=== PATIENT | male | born 1970 | race Caucasian/White ===

== ENCOUNTER 2018-10-14 08:51 | Emergency (ER) | payer BC, OTHER ==
[~2018-10-14] VITALS: Ht 180.3 cm; Wt 94.3 kg
[~2018-10-14 08:51] MED LIST: BEN25 PO; MED4DP PO; PRED20TA PO; TRIA15OI9 TOP
[2018-10-14 09:07] VITALS: Ht 180.3 cm; Wt 94.3 kg
[2018-10-14] MEDS ORDERED: DEXAMETHASONE 10 MG/ML 1 ML INJ IM ONE (09:30)
--- NOTE | 2018-10-14 09:39 | ERD ---
ER Documentation Chief Complaint Chief Complaint MULTIPLE INSECT BITE TO BOTH UPPER EXT FOR FEW DAYS HPI 47-year-old male presenting with insect bite to the bilateral upper extremities. Patient states that he has been bitten multiple times and is very itchy causing him not to feel the sleep. He took Tylenol with no alleviation of symptoms but no other medications. He denies any fevers. He states that areas are swollen. Denies medical problems. NKDA. Surgical history denies. Social history smokes marijuana and cigarettes occasionally. ROS All systems reviewed and are negative except as per history of present illness. Medications Home Meds Active Scripts Triamcinolone Acetonide (Triamcinolone Acetonide) 0.5% - 15 Gm Oint..gm., 1 APPLIC TOP BID, #1 TUB Prov:JESSICA WRIGHT PA-C 10/14/18 Diphenhydramine Hcl* (Benadryl*) 25 Mg Cap, 25 MG PO Q6, #30 CAP Prov:JESSICA WRIGHT PA-C 10/14/18 Methylprednisolone* (Medrol* DOSE PACK) 4 Mg/Dose-Pack Tab.ds.pk, 4 MG PO . DIRECTED, #1 PACKET Prov:JESSICA WRIGHT PA-C 10/14/18 Prednisone* (Prednisone*) 20 Mg Tab, 40 MG PO DAILY for 4 Days, TAB Prov:JESSICA WRIGHT PA-C 10/14/18 Allergies Allergies: Coded Allergies: No Known Allergy (Unverified , 10/14/18) PMhx/Soc History of Surgery: No Anesthesia Reaction: No Hx Neurological Disorder: No Hx Respiratory Disorders: No Hx Cardiac Disorders: No Hx Psychiatric Problems: No Hx Miscellaneous Medical Probl: No Hx Alcohol Use: Yes Hx Substance Use: No Hx Tobacco Use: Yes Smoking Status: Current every day smoker FmHx Family History: No diabetes, No coronary disease, No other Physical Exam Vitals Vital Signs Date Temp Pulse Resp B/P (MAP) Pulse Ox O2 O2 Flow FiO2 Time Delivery Rate 10/14/18 98.1 106 18 174/108 97 09:07 (130) Physical Exam GENERAL: The patient is well-appearing, well-nourished, in no acute distress CHEST: Clear to auscultation bilaterally. There are no rales, wheezes or rhonchi. HEART: Regular rate and rhythm. No murmurs, clicks, rubs or gallops. ABDOMEN:Soft, nontender and nondistended. Good bowel sounds. No rebound or guarding. No gross peritonitis. No gross organomegaly or masses. EXTREMITIES: Equal pulses bilaterally. There is no peripheral clubbing, cyanosis or edema. No focal swelling or erythema. Full range of motion. NEUROLOGIC: Alert and oriented. Cranial nerves II through XII intact. Motor strength in all 4 extremities with 5 out of 5 strength. Sensation grossly intact. Normal speech and gait. SKIN: Multiple erythematous wheals noted on the forearms. No pustules and no lymphatic streaking. Results 24 hrs Current Medications Medications Dose Sig/Blanca Start Time Status Last (Trade) Ordered Route PRN Stop Time Admin Dose Reason Admin 10 mg ONCE ONCE 10/14/18 DC 10/14/18 Dexamethasone IM 09:30 10/14/18 09:27 (Decadron) 09:31 Procedures/MDM ER course: Decadron given in ED MDM: 47-year-old male presenting with insect bites. I have low suspicion for infection. Patient's bites appear to be allergic in nature and I believe the erythema is due to irritation from the affecting agent. I do not feel antibiotics are indicated. Patient is discharged with supportive medications. Patient is recommended to use insect repellent when outside as I believe this is where patient is getting bitten. Patient is discharged with strict ER precautions. All questions answered at discharge Departure Diagnosis: Primary Impression: Insect bite Condition: Stable Patient Instructions: Insect Bite Referrals: [facility] YOU HAVE RECEIVED A MEDICAL SCREENING EXAM AND THE RESULTS INDICATE THAT YOU DO NOT HAVE A CONDITION THAT REQUIRES URGENT TREATMENT IN THE EMERGENCY DEPARTMENT. FURTHER EVALUATION AND TREATMENT OF YOUR CONDITION CAN WAIT UNTIL YOU ARE SEEN IN YOUR DOCTORS OFFICE WITHIN THE NEXT 1-2 DAYS. IT IS YOUR RESPONSIBILITY TO MAKE AN APPOINTMENT FOR FOLOW-UP CARE. IF YOU HAVE A PRIMARY DOCTOR --you should call your primary doctor and schedule an appointment IF YOU DO NOT HAVE A PRIMARY DOCTOR YOU CAN CALL OUR PHYSICIAN REFERRAL HOTLINE AT IF YOU CAN NOT AFFORD TO SEE A PHYSICIAN YOU CAN CHOSE FROM THE FOLLOWING [facility] [address] [address] [facility] [address] [facility] [address] [facility] [address] [facility]. [facility] [address] Additional Instructions: FOLLOW UP WITH YOUR PRIMARY CARE PHYSICIAN TOMORROW.Return to this facility if you are not improving as expected. JESSICA WRIGHT PA-C Oct 14, 2018 09:39
[2018-10-14 09:42] VITALS: BP 126/85; PULSE 105; RESP 18
== END 2018-10-14 09:43 | disposition home or self-care (01) ==
LOC: FTE 08:51
DX: S50.862A Insect bite (nonvenomous) of left forearm, initial encounter (principal); F17.210 Nicotine dependence, cigarettes, uncomplicated; S50.861A Insect bite (nonvenomous) of right forearm, initial encounter; W57.XXXA Bitten or stung by nonvenomous insect and other nonvenomous arthropods, initial encounter; Y92.9 Unspecified place or not applicable
CPT/HCPCS: 96372; 99284; J1100